=== PATIENT | male | born 1990 | race African-American/Black ===

== ENCOUNTER 2023-11-03 11:53 | Inpatient (IN) | payer OTHER ==
[2023-11-03 12:17] VITALS: BMI 25.0
[2023-11-03] MEDS ORDERED: hydrOXYzine PAMOATE 25 MG CAPSULE (FP) PO PRN (13:12)
[2023-11-03] MEDS ORDERED: ACETAMINOPHEN 325 MG TABLET (FP) PO PRN (13:12)
[2023-11-03] MEDS ORDERED: COLLOIDAL OATMEAL 1 BAR EACH TP PRN (13:12)
[2023-11-03] MEDS ORDERED: BENZOCAINE/MENTHOL (CHLORASEPTIC ) LOZENGE MM PRN (13:12)
[2023-11-03] MEDS ORDERED: LOPERAMIDE HCL 2 MG CAPSULE PO PRN (13:12)
[2023-11-03] MEDS ORDERED: IBUPROFEN 600 MG TABLET (FP) PO PRN (13:12)
[2023-11-03] MEDS ORDERED: BENZONATATE 200 MG CAPSULE PO PRN (13:12)
[2023-11-03] MEDS ORDERED: NALOXONE HCL 0.4 MG/ML VIAL IM PRN (13:12)
[2023-11-03] MEDS ORDERED: MAG HYDROX/AL HYDROX/SIMETH 30 ML UNIT-DOSE CUP PO PRN (13:12)
[2023-11-03] MEDS ORDERED: IBUPROFEN 400 MG TABLET (FP) PO PRN (13:12)
[2023-11-03] MEDS ORDERED: POLYETHYLENE GLYCOL (HEALTHYLAX) 3350 17 GM PACKET PO PRN (13:12)
[2023-11-03] MEDS ORDERED: MAGNESIUM HYDROX 2400MG/30ML ORAL SUSPENSION 30 ML CUP PO PRN (13:12)
[2023-11-03] MEDS ORDERED: guaiFENesin 600 MG TABLET.ER (FP) PO PRN (13:12)
[2023-11-03] MEDS ORDERED: NALOXONE HCL (KLOXXADO) 8 MG SPRAY NS PRN (13:12)
[2023-11-03] MEDS: PRENATAL VITAMINS W/ FOLIC ACID TABLET (FP) PO SCH (14:13)
[2023-11-03] MEDS ORDERED: TUBERCULIN PPD 5 TU/0.1ML VIAL ID ONE (17:04)
[2023-11-03] MEDS ORDERED: TUBERCULIN PPD 5 TU/0.1ML SYRINGE (IN PATIENT USE ONLY) ID ONE (17:14)
[2023-11-03] MEDS: BENZTROPINE MESYLATE 1 MG TABLET PO SCH (21:29)
[2023-11-03] MEDS: THIAMINE HCL 100 MG TABLET (FP) PO SCH (21:30)
[2023-11-03] MEDS: MELATONIN 5 MG TABLETS PO SCH (21:30)
[2023-11-04 08:29] LABS: POTASSIUM 4.3 mmol/L (3.5-5.1)
[2023-11-04 08:34] LABS: URINE APPEARANCE CLEAR; URINE BILIRUBIN NEGATIVE (NEGATIVE); URINE COLOR YELLOW; URINE GLUCOSE (UA) NEGATIVE (NEGATIVE); URINE KETONE NEGATIVE (NEGATIVE); URINE LEUK ESTERASE NEGATIVE (NEGATIVE); URINE NITRITE NEGATIVE (NEGATIVE); URINE PROTEIN NEGATIVE (NEGATIVE); URINE UROBILINOGEN 0.2 mg/dL (0.2-1.0)
[2023-11-04 08:37] LABS: ALBUMIN 3.5 g/dl (3.4-5.0); BLOOD UREA NITROGEN 11.6 mg/dL (7-18)
[2023-11-04 08:38] LABS: CALCIUM 9.4 mg/dL (8.5-10.1); HEMATOCRIT 38.2 % (35.4-49); HEMOGLOBIN 12.7 GM/dL (11.7-16.9); MCH 28.2 pg (25.7-33.7); MCHC 33.2 g/dl (32.0-35.9); MEAN PLT VOLUME 8.7 fl (7.5-11.1); PLATELET COUNT 235 10^3/uL (134-434); RBC 4.49 M/mm3 (4.00-5.60); RDW 15.9 % (11.9-15.9); WHITE BLOOD COUNT 4.2 K/mm3 (4.0-10.0)
[2023-11-04 08:40] LABS: CREATININE 0.8 mg/dL (0.55-1.3)
[2023-11-04 08:41] LABS: BILIRUBIN,TOTAL 0.4 mg/dL (0.2-1); TOT PROT 6.6 g/dl (6.4-8.2)
[2023-11-04] MEDS: PRENATAL VITAMINS W/ FOLIC ACID TABLET (FP) PO SCH (09:43)
[2023-11-04] MEDS: BENZTROPINE MESYLATE 1 MG TABLET PO SCH ×2 (09:43→21:27)
[2023-11-04 11:08] LABS: SYPHILIS W/ RPR CONF NON-REACTIVE (NONREACTIVE)
[2023-11-04] MEDS: DIVALPROEX SODIUM 500 MG TABLET E.C. PO SCH (21:27)
[2023-11-04] MEDS: MELATONIN 5 MG TABLETS PO SCH (21:28)
[2023-11-04] MEDS: THIAMINE HCL 100 MG TABLET (FP) PO SCH (21:28)
[2023-11-05] MEDS: DIVALPROEX SODIUM 500 MG TABLET E.C. PO SCH ×2 (09:30→21:00)
[2023-11-05] MEDS: BENZTROPINE MESYLATE 1 MG TABLET PO SCH ×2 (09:30→21:00)
[2023-11-05] MEDS: PRENATAL VITAMINS W/ FOLIC ACID TABLET (FP) PO SCH (09:31)
[2023-11-05] MEDS: THIAMINE HCL 100 MG TABLET (FP) PO SCH (21:01)
[2023-11-05] MEDS: MELATONIN 5 MG TABLETS PO SCH (21:01)
[2023-11-06] MEDS: PRENATAL VITAMINS W/ FOLIC ACID TABLET (FP) PO SCH (10:37)
[2023-11-06] MEDS: DIVALPROEX SODIUM 500 MG TABLET E.C. PO SCH ×2 (10:37→21:07)
[2023-11-06] MEDS: BENZTROPINE MESYLATE 1 MG TABLET PO SCH ×2 (10:37→21:07)
[2023-11-06] MEDS: THIAMINE HCL 100 MG TABLET (FP) PO SCH (21:08)
[2023-11-06] MEDS: MELATONIN 5 MG TABLETS PO SCH (21:08)
[2023-11-07] MEDS: DIVALPROEX SODIUM 500 MG TABLET E.C. PO SCH ×2 (09:44→21:04)
[2023-11-07] MEDS: BENZTROPINE MESYLATE 1 MG TABLET PO SCH ×2 (09:44→21:04)
[2023-11-07] MEDS: PRENATAL VITAMINS W/ FOLIC ACID TABLET (FP) PO SCH (09:44)
[2023-11-07] MEDS: MELATONIN 5 MG TABLETS PO SCH (21:04)
[2023-11-07] MEDS: THIAMINE HCL 100 MG TABLET (FP) PO SCH (21:05)
[2023-11-08] MEDS: PRENATAL VITAMINS W/ FOLIC ACID TABLET (FP) PO SCH (09:38)
[2023-11-08] MEDS: BENZTROPINE MESYLATE 1 MG TABLET PO SCH ×2 (09:38→21:13)
[2023-11-08] MEDS: DIVALPROEX SODIUM 500 MG TABLET E.C. PO SCH ×2 (09:39→21:13)
[2023-11-08] MEDS: MELATONIN 5 MG TABLETS PO SCH (21:14)
[2023-11-08] MEDS: THIAMINE HCL 100 MG TABLET (FP) PO SCH (21:14)
[2023-11-09] MEDS: BENZTROPINE MESYLATE 1 MG TABLET PO SCH ×2 (09:28→21:18)
[2023-11-09] MEDS: PRENATAL VITAMINS W/ FOLIC ACID TABLET (FP) PO SCH (09:28)
[2023-11-09] MEDS: DIVALPROEX SODIUM 500 MG TABLET E.C. PO SCH ×2 (09:28→21:18)
[2023-11-09] MEDS: MELATONIN 5 MG TABLETS PO SCH (21:18)
[2023-11-09] MEDS: THIAMINE HCL 100 MG TABLET (FP) PO SCH (21:19)
[2023-11-10] MEDS: BENZTROPINE MESYLATE 1 MG TABLET PO SCH ×2 (10:14→21:18)
[2023-11-10] MEDS: PRENATAL VITAMINS W/ FOLIC ACID TABLET (FP) PO SCH (10:14)
[2023-11-10] MEDS: DIVALPROEX SODIUM 500 MG TABLET E.C. PO SCH ×2 (10:14→21:18)
[2023-11-10] MEDS: MELATONIN 5 MG TABLETS PO SCH (21:19)
[2023-11-10] MEDS: THIAMINE HCL 100 MG TABLET (FP) PO SCH (21:19)
[2023-11-11] MEDS: PRENATAL VITAMINS W/ FOLIC ACID TABLET (FP) PO SCH (09:49)
[2023-11-11] MEDS: BENZTROPINE MESYLATE 1 MG TABLET PO SCH ×2 (09:49→21:04)
[2023-11-11] MEDS: DIVALPROEX SODIUM 500 MG TABLET E.C. PO SCH ×2 (09:49→21:03)
[2023-11-11] MEDS: MELATONIN 5 MG TABLETS PO SCH (21:04)
[2023-11-11] MEDS: THIAMINE HCL 100 MG TABLET (FP) PO SCH (21:04)
[2023-11-12] MEDS: BENZTROPINE MESYLATE 1 MG TABLET PO SCH ×2 (10:27→21:18)
[2023-11-12] MEDS: PRENATAL VITAMINS W/ FOLIC ACID TABLET (FP) PO SCH (10:27)
[2023-11-12] MEDS: DIVALPROEX SODIUM 500 MG TABLET E.C. PO SCH ×2 (10:27→21:18)
[2023-11-12] MEDS: THIAMINE HCL 100 MG TABLET (FP) PO SCH (21:18)
[2023-11-12] MEDS: MELATONIN 5 MG TABLETS PO SCH (21:18)
[2023-11-13] MEDS: DIVALPROEX SODIUM 500 MG TABLET E.C. PO SCH ×2 (09:53→21:35)
[2023-11-13] MEDS: PRENATAL VITAMINS W/ FOLIC ACID TABLET (FP) PO SCH (09:54)
[2023-11-13] MEDS: BENZTROPINE MESYLATE 1 MG TABLET PO SCH ×2 (09:54→21:36)
[2023-11-13] MEDS: THIAMINE HCL 100 MG TABLET (FP) PO SCH (21:36)
[2023-11-13] MEDS: MELATONIN 5 MG TABLETS PO SCH (21:36)
[2023-11-14] MEDS: PRENATAL VITAMINS W/ FOLIC ACID TABLET (FP) PO SCH (10:35)
[2023-11-14] MEDS: DIVALPROEX SODIUM 500 MG TABLET E.C. PO SCH ×2 (10:35→21:02)
[2023-11-14] MEDS: BENZTROPINE MESYLATE 1 MG TABLET PO SCH ×2 (10:35→21:02)
[2023-11-14] MEDS: MELATONIN 5 MG TABLETS PO SCH (21:02)
[2023-11-14] MEDS: THIAMINE HCL 100 MG TABLET (FP) PO SCH (21:02)
[2023-11-15] MEDS: PRENATAL VITAMINS W/ FOLIC ACID TABLET (FP) PO SCH (10:39)
[2023-11-15] MEDS: DIVALPROEX SODIUM 500 MG TABLET E.C. PO SCH ×2 (10:40→21:26)
[2023-11-15] MEDS: BENZTROPINE MESYLATE 1 MG TABLET PO SCH ×2 (10:40→21:26)
[2023-11-15] MEDS: MELATONIN 5 MG TABLETS PO SCH (21:26)
[2023-11-15] MEDS: THIAMINE HCL 100 MG TABLET (FP) PO SCH (21:26)
[2023-11-16 06:51] VITALS: RESP 18; TEMP 98.2
[2023-11-16] MEDS: BENZTROPINE MESYLATE 1 MG TABLET PO SCH ×2 (09:45→21:44)
[2023-11-16] MEDS: PRENATAL VITAMINS W/ FOLIC ACID TABLET (FP) PO SCH (09:45)
[2023-11-16] MEDS: DIVALPROEX SODIUM 500 MG TABLET E.C. PO SCH ×2 (09:45→21:44)
[2023-11-16] MEDS: MELATONIN 5 MG TABLETS PO SCH (21:45)
[2023-11-16] MEDS: THIAMINE HCL 100 MG TABLET (FP) PO SCH (21:45)
[2023-11-17 06:24] VITALS: BP 127/72; PULSE 70
[2023-11-17] MEDS: BENZTROPINE MESYLATE 1 MG TABLET PO SCH (10:41)
[2023-11-17] MEDS: PRENATAL VITAMINS W/ FOLIC ACID TABLET (FP) PO SCH (10:41)
[2023-11-17] MEDS: DIVALPROEX SODIUM 500 MG TABLET E.C. PO SCH (10:41)
== END 2023-11-17 10:52 | disposition home or self-care (01) | DRG 772 ==
LOC: YASAS 11:53 → Y3W 16:49
PROVIDERS: ADMIT Allergy & Immunology; ATTEND Psychiatry & Neurology Pain Medicine
PROC: HZ42ZZZ Group Counseling for Substance Abuse Treatment, Cognitive-Behavioral (ICD-10-PCS; principal; 2023-11-03)
DX: F10.20 Alcohol dependence, uncomplicated (principal); F12.20 Cannabis dependence, uncomplicated; F17.210 Nicotine dependence, cigarettes, uncomplicated; F20.9 Schizophrenia, unspecified; F19.24 Other psychoactive substance dependence with psychoactive substance-induced mood disorder; I10 Essential (primary) hypertension; Z56.0 Unemployment, unspecified; Z59.01 Sheltered homelessness; Z88.8 Allergy status to other drugs, medicaments and biological substances
CPT/HCPCS: 36415; 80053; 80164; 81003; 85027; 86780; 86803; 87635; 87811; 93005; 93010